=== PATIENT | male | born 1955 | race Caucasian/White ===

== ENCOUNTER 2024-03-29 11:44 | Day surgery (SDC) | payer MEDICARE ==
[~2024-03-29] VITALS: Ht 180.3 cm; Wt 105.8 kg
[~2024-03-29 11:44] MED LIST: Famotidine 20 MG TAB PO SCH; LR 1,000 ML IV SCH
[2024-03-29] MEDS ORDERED: LOTREL 10 MG-401 CAP PO (12:09)
[2024-03-29] MEDS ORDERED: GLUCOPHAGE500 MG/TAB PO (12:09)
[2024-03-29 12:42] VITALS: BP 142/83; PULSE 70; TEMP 97.8
[2024-03-29] MEDS ORDERED: fentaNYL 50 MCG/ML 5 ML VIAL ONE (13:28)
[2024-03-29] MEDS ORDERED: Rocuronium 50 MG/5 ML Multi-Dose VIAL ONE (13:29)
[2024-03-29] MEDS ORDERED: Lidocaine PF 2% (20 MG/ML) 5 ML VIAL ONE (13:30)
[2024-03-29] MEDS ORDERED: NORCO 325 MG-51 TAB PO (13:37)
[2024-03-29] MEDS ORDERED: Ibuprofen 600 MG TAB PO PRN (13:45)
[2024-03-29] MEDS ORDERED: Ondansetron 4 MG/2 ML VIAL IV PRN ×2 (13:45→14:00)
[2024-03-29] MEDS ORDERED: Acetaminophen 325 MG TAB PO PRN (13:45)
[2024-03-29] MEDS ORDERED: fentaNYL 50 MCG/ML 1 ML SYRINGE/VIAL [PACU/SDC ONLY] IV PRN (14:00)
[2024-03-29] MEDS ORDERED: HYDROmorphone 1 MG/1 ML SYRINGE [PACU/SDC ONLY] IV PRN (14:00)
[2024-03-29] MEDS ORDERED: hydrALAZINE 20 MG/ML 1 ML VIAL IV PRN (14:00)
[2024-03-29] MEDS ORDERED: droPERidol 2.5 MG/ML 2 ML VIAL IV PRN (14:00)
--- NOTE | 2024-03-29 15:40 | NUR ---
NURSE HANDOFF COMPLETED BEDSIDE. SEE CHART FOR DETAILS. PATIENT TRANSPORTED BACK TO [facility], ALERT AND ORIENTED X3. DENIES PAIN, NAUSEA AND SHORTNESS OF BREATH. BREATHING REGULAR AND UNLABORED ON ROOM AIR. SKIN WARM AND DRY. 3 ABDOMINAL BANDAIDS CLEAN, DRY AND INTACT. SCROTAL SUPPORT IN PLACE. WARM BLANKET OVER ABDOMEN WHICH PATIENT USES TO BRACE WHEN COUGHING AND DEEP BREATHING. PATIENT HAS NO COMPLAINTS AND HAD APPLE JUICE AND JELLO. BOTH FOOD AND DRINK TOLERATED WELL. SEE CHART FOR BLOOD SUGAR. NO DYSPHAGIA. CALL LIGHT IN REACH. SPOUSE, TOÑA, PRESENT IN ROOM.
[2024-03-29 15:46] VITALS: BP 118/78; PULSE 74; TEMP 97.6
[2024-03-29 15:58] VITALS: BP 120/76; PULSE 62
[2024-03-29 16:00] VITALS: BP 118/77; PULSE 64
--- NOTE | 2024-03-29 16:16 | NUR ---
PATIENT SAT UP IN BED AND REQUESTED MEDICATION FOR PAIN. DISCUSSED PAIN MANAGEMENT PLAN, AND PATIENT DECIDED TO TAKE NORCO WHILE AT THE HOSPITAL BEFORE HE WAS DISCHARGED. SEE EMAR.
[2024-03-29 16:26] VITALS: BP 137/88; PULSE 67
--- NOTE | 2024-03-29 16:31 | NUR ---
1610: DISCHARGE TEACHING COMPLETED WITH PRINTED EDUCATION AND INSTRUCTIONS SENT HOME WITH PATIENT. PATIENT AND SPOUSE VERBALIZED UNDERSTANDING. 1625: PATIENT AMBULATED TO RESTROOM WITH STEADY GAIT AND VOIDED WITHOUT DIFFICULTY. 1629: PATIENT DENIES PAIN SAYING "I DON'T REALLY HAVE ANY RIGHT NOW". TOLERATING FOOD AND DRINK. ALL 3 ABDOMINAL BANDAIDS CLEAN, DRY AND INTACT. LEFT HAND IV REMOVED. GAUZE AND COBAN PLACED OVER SITE. 1631: PATIENT DISCHARGED HOME WITH SPOUSE, TOÑA, TRANSPORT.
== END 2024-03-29 16:31 | disposition home or self-care (01) ==
LOC: SDCO 11:44
DX: K40.90 Unilateral inguinal hernia, without obstruction or gangrene, not specified as recurrent (principal); D17.6 Benign lipomatous neoplasm of spermatic cord; G47.33 Obstructive sleep apnea (adult) (pediatric); E66.9 Obesity, unspecified; Z79.899 Other long term (current) drug therapy
CPT/HCPCS: C1781; J2704; J3010; J7120